=== PATIENT | female | born 1990 | race Caucasian/White ===

== ENCOUNTER 2021-01-28 10:49 | Inpatient (IN) | payer MEDICAID ==
[~2021-01-28] VITALS: Ht 162.6 cm; Wt 79.7 kg
[2021-01-28] MEDS ORDERED: MAGNESIUM SULF. PMX 20GM/500ML 500 ML IV SCH (11:00)
[2021-01-28] MEDS: LACTATED RINGERS 1,000 ML IV PRN (11:00)
[2021-01-28 11:08] VITALS: BP 119/64
[2021-01-28 11:41] LABS: BASOPHILS % (AUTO) 0 % (0-1); EOSINOPHILS % (AUTO) 0 % (1-7); LYMPHOCYTES % (AUTO) 7 % (22-44); MEAN CORPUSCULAR HEMOGLOBIN 30.7 pg (27.0-34.8); MEAN PLATELET VOLUME 9.6 fL (7.4-10.4); MONOCYTES % (AUTO) 2 % (2-9); NEUTROPHILS % (AUTO) 91 % (42-75); PLATELET COUNT 193 x10^3/uL (130-400); RED BLOOD COUNT 3.44 x10^6/uL (3.82-5.3); RED CELL DISTRIBUTION WIDTH 12.8 % (9.6-15.2)
[2021-01-28 11:56] LABS: ALBUMIN 2.1 g/dL (3.4-5.0); ANION GAP 7 mmol/L (5-15); CALCIUM 7.1 mg/dL (8.5-10.1); CHLORIDE 109 mmol/L (98-107)
[2021-01-28 12:07] LABS: ALANINE AMINOTRANSFERASE 11 U/L (12-78); ALKALINE PHOSPHATASE 86 U/L (45-117); BILIRUBIN,TOTAL 0.3 mg/dL (0.2-1.0); CREATININE 0.25 mg/dL (0.55-1.02); TOTAL PROTEIN 5.9 g/dL (6.4-8.2)
[2021-01-28 12:09] LABS: AMPHETAMINE SCREEN, URINE Negative (Negative); BARBITURATE SCREEN, URINE Negative (Negative); BENZODIAZEPINE SCREEN, URINE Negative (Negative); CANNABINOID SCREEN, URINE Positive (Negative); COCAINE SCREEN, URINE Negative (Negative); METHADONE SCREEN, URINE Negative (Negative); OPIATE SCREEN, URINE Negative (Negative)
[2021-01-28] MEDS ORDERED: MAGNESIUM SULF. PMX 20GM/500ML 500 ML IV ONE ×2 (16:27→22:25)
[2021-01-28] MEDS: MAGNESIUM SULF. PMX 20GM/500ML 500 ML IV SCH ×2 (17:04→22:29)
[2021-01-29] MEDS: ONDANSETRON 2MG/ML, 2ML IVPush PRN ×2 (02:35→12:23)
[2021-01-29] MEDS ORDERED: ONDANSETRON 2MG/ML, 2ML ONE (02:35)
[2021-01-29] MEDS: MAGNESIUM SULF. PMX 20GM/500ML 500 ML IV SCH ×3 (03:10→17:44)
[2021-01-29 07:30] VITALS: BP 122/58
[2021-01-29] MEDS ORDERED: OXYcodone 5 MG/5 ML ORAL.SOL UDC PO PRN (10:00)
[2021-01-29] MEDS ORDERED: EPHEDRINE 50 MG/ML, 1ML IVPush PRN (10:00)
[2021-01-29] MEDS ORDERED: ONDANSETRON 2MG/ML, 2ML IVPush PRN (10:00)
[2021-01-29] MEDS ORDERED: HYDROmorphone 2 MG/ML, 1ML IVPush PRN (10:00)
[2021-01-29] MEDS ORDERED: MEPERIDINE/PF 25MG/0.5ML IVPush PRN (10:00)
[2021-01-29] MEDS ORDERED: METOPROLOL 1 MG/ML, 5ML IV PRN (10:00)
[2021-01-29] MEDS ORDERED: LABETALOL 5MG/ML, 20ML IV PRN (10:00)
[2021-01-29] MEDS ORDERED: FENTANYL PF 100 MCG/2ML IV PRN (10:00)
[2021-01-29] MEDS ORDERED: hydrALAzine 20 MG/ML, 1ML IV PRN (10:00)
[2021-01-29] MEDS ORDERED: PROMETHAZINE 25 MG/ML, 1ML IV PRN (10:00)
[2021-01-29] MEDS ORDERED: BETAMETHASONE 6 MG/ML, 5ML IM SCH (10:00)
[2021-01-29] MEDS ORDERED: ALBUTEROL SULFATE 2.5 MG/3 ML NPPB PRN (10:00)
[2021-01-29] MEDS ORDERED: MIDAZOLAM 1 MG/ML, 2ML IV PRN (10:00)
[2021-01-29] MEDS ORDERED: HYDROcodone/APAP 7.5-325MG/15ML UDC PO PRN (10:00)
[2021-01-29] MEDS ORDERED: MAGNESIUM SULF. PMX 20GM/500ML 500 ML IV SCH (11:00)
[2021-01-29] MEDS ORDERED: PREN1TAB60 PO (16:10)
[2021-01-30] MEDS: MAGNESIUM SULF. PMX 20GM/500ML 500 ML IV SCH (01:43)
[2021-01-30] MEDS: LACTATED RINGERS 1,000 ML IV PRN (01:44)
[2021-01-30] MEDS ORDERED: MAGNESIUM SULF. PMX 20GM/500ML 500 ML IV SCH (09:30)
[2021-01-30] MEDS ORDERED: PRENATAL VIT/IRON/FA 1 EACH TABLET ONE (09:31)
[2021-01-30] MEDS: DOCUSATE 100 MG CAPSULE PO SCH (09:32)
[2021-01-30] MEDS: PRENATAL VIT/IRON/FA 1 EACH TABLET PO SCH (09:32)
[2021-01-31] MEDS: BISACODYL 5 MG EC TABLET PO SCH (09:11)
[2021-01-31] MEDS: PRENATAL VIT/IRON/FA 1 EACH TABLET PO SCH (09:12)
[2021-01-31] MEDS: FERROUS GLUCONATE 324 MG TABLET PO SCH (09:12)
[2021-01-31] MEDS: DOCUSATE 100 MG CAPSULE PO SCH ×2 (15:40→21:00)
[2021-02-01] MEDS: SODIUM CHLORIDE FLUSH 10ML SYR IVF SCH ×3 (04:00→14:00)
[2021-02-01] MEDS: FERROUS GLUCONATE 324 MG TABLET PO SCH (08:00)
[2021-02-01] MEDS: PRENATAL VIT/IRON/FA 1 EACH TABLET PO SCH (09:00)
[2021-02-01] MEDS: DOCUSATE 100 MG CAPSULE PO SCH (09:00)
[2021-02-02] MEDS: PRENATAL VIT/IRON/FA 1 EACH TABLET PO SCH (08:14)
[2021-02-02] MEDS: FERROUS GLUCONATE 324 MG TABLET PO SCH (08:15)
[2021-02-02] MEDS: SODIUM CHLORIDE FLUSH 10ML SYR IVF SCH ×3 (08:30→23:00)
[2021-02-03] MEDS: DOCUSATE 100 MG CAPSULE PO SCH (07:52)
[2021-02-03] MEDS: PRENATAL VIT/IRON/FA 1 EACH TABLET PO SCH (07:52)
[2021-02-03] MEDS: FERROUS GLUCONATE 324 MG TABLET PO SCH (07:52)
[2021-02-03] MEDS: SODIUM CHLORIDE FLUSH 10ML SYR IVF SCH ×3 (09:00→16:30)
[2021-02-03] MEDS: BISACODYL 5 MG EC TABLET PO SCH (09:00)
[2021-02-03] MEDS ORDERED: FAMOTIDINE 20 MG TABLET PO SCH (11:00)
[2021-02-03] MEDS: FAMOTIDINE 10 MG TAB PO SCH (11:03)
[2021-02-04] MEDS: FAMOTIDINE 10 MG TAB PO SCH ×4 (00:10→23:54)
[2021-02-04] MEDS: SODIUM CHLORIDE FLUSH 10ML SYR IVF SCH ×6 (07:45→23:55)
[2021-02-04] MEDS: BISACODYL 5 MG EC TABLET PO SCH (13:57)
[2021-02-04 20:07] VITALS: BP 123/71
[2021-02-05 10:00] VITALS: BP 105/56
[2021-02-05] MEDS: FERROUS GLUCONATE 324 MG TABLET PO SCH (10:52)
[2021-02-05] MEDS: DOCUSATE 100 MG CAPSULE PO SCH (10:53)
[2021-02-05] MEDS: PRENATAL VIT/IRON/FA 1 EACH TABLET PO SCH (10:53)
[2021-02-05] MEDS: FAMOTIDINE 10 MG TAB PO SCH (17:58)
[2021-02-05] MEDS: SODIUM CHLORIDE FLUSH 10ML SYR IVF SCH (21:00)
[2021-02-06] MEDS: FAMOTIDINE 10 MG TAB PO SCH ×3 (07:34→21:08)
[2021-02-06] MEDS: PRENATAL VIT/IRON/FA 1 EACH TABLET PO SCH (07:37)
[2021-02-06] MEDS: FERROUS GLUCONATE 324 MG TABLET PO SCH (07:37)
[2021-02-06] MEDS: DOCUSATE 100 MG CAPSULE PO SCH ×2 (07:37→21:07)
[2021-02-06] MEDS: SODIUM CHLORIDE FLUSH 10ML SYR IVF SCH ×3 (07:45→11:30)
[2021-02-06] MEDS: BISACODYL 5 MG EC TABLET PO SCH (22:23)
[2021-02-07] MEDS: SODIUM CHLORIDE FLUSH 10ML SYR IVF SCH ×3 (09:00→21:00)
[2021-02-08] MEDS: SODIUM CHLORIDE FLUSH 10ML SYR IVF SCH ×5 (08:15→23:30)
[2021-02-08] MEDS: PRENATAL VIT/IRON/FA 1 EACH TABLET PO SCH (08:27)
[2021-02-08] MEDS: FAMOTIDINE 10 MG TAB PO SCH ×3 (08:27→21:40)
[2021-02-08] MEDS: DOCUSATE 100 MG CAPSULE PO SCH ×2 (08:28→21:40)
[2021-02-08] MEDS: FERROUS GLUCONATE 324 MG TABLET PO SCH (08:28)
[2021-02-08] MEDS: BISACODYL 5 MG EC TABLET PO SCH (09:00)
[2021-02-08] MEDS ORDERED: ASPI-696 PO (11:21)
[2021-02-08 19:56] VITALS: BP 111/69
[2021-02-09] MEDS: DOCUSATE 100 MG CAPSULE PO SCH ×2 (08:00→20:54)
[2021-02-09] MEDS: FAMOTIDINE 10 MG TAB PO SCH ×3 (08:01→20:54)
[2021-02-09] MEDS: PRENATAL VIT/IRON/FA 1 EACH TABLET PO SCH (08:01)
[2021-02-09] MEDS: FERROUS GLUCONATE 324 MG TABLET PO SCH ×2 (08:01→10:00)
[2021-02-09] MEDS: SODIUM CHLORIDE FLUSH 10ML SYR IVF SCH ×3 (09:00→21:00)
[2021-02-09] MEDS: BISACODYL 5 MG EC TABLET PO SCH (09:52)
[2021-02-10] MEDS: FERROUS GLUCONATE 324 MG TABLET PO SCH ×2 (07:40→14:00)
[2021-02-10] MEDS: DOCUSATE 100 MG CAPSULE PO SCH ×2 (07:40→22:05)
[2021-02-10] MEDS: PRENATAL VIT/IRON/FA 1 EACH TABLET PO SCH (07:41)
[2021-02-10] MEDS: SODIUM CHLORIDE FLUSH 10ML SYR IVF SCH ×5 (07:45→22:15)
[2021-02-10] MEDS: FAMOTIDINE 10 MG TAB PO SCH ×3 (07:46→22:05)
[2021-02-10] MEDS: BISACODYL 5 MG EC TABLET PO SCH (08:45)
[2021-02-11] MEDS ORDERED: ONDANSETRON 2MG/ML, 2ML ONE (04:37)
[2021-02-11] MEDS ORDERED: FENTANYL PF 100 MCG/2ML ONE ×3 (04:37→05:54)
[2021-02-11] MEDS ORDERED: CEFAZOLIN 1,000 MG ONE (04:37)
[2021-02-11] MEDS ORDERED: SODIUM BICARBONATE 1 MEQ/ML, 50ML VIAL ONE (04:37)
[2021-02-11] MEDS ORDERED: KETOROLAC 30 MG/1 ML ONE ×2 (04:37→12:06)
[2021-02-11] MEDS ORDERED: PHENYLEPHRINE 10 MG/ML ONE (04:37)
[2021-02-11] MEDS ORDERED: OXYTOCIN 10 UNITS/ML, 1ML ONE (04:37)
[2021-02-11] MEDS ORDERED: EPHEDRINE 50 MG/ML, 1ML ONE (04:37)
[2021-02-11] MEDS ORDERED: DEXAMETHASONE 4 MG/ML, 1ML ONE (04:37)
[2021-02-11] MEDS ORDERED: TRANEXAMIC ACID 100 MG/ML, 10ML ONE (04:51)
[2021-02-11] MEDS ORDERED: METHYLERGONOVINE 0.2 MG/ML IM PRN (06:00)
[2021-02-11] MEDS ORDERED: MISOPROSTOL 200 MCG TABLET PO PRN (06:00)
[2021-02-11] MEDS ORDERED: ONDANSETRON 2MG/ML, 2ML IV PRN (06:00)
[2021-02-11] MEDS: OXYTOCIN 30U/ 0.9% NaCL 500ML 500 ML IV SCH ×2 (06:00→16:00)
[2021-02-11] MEDS ORDERED: ACETAMINOPHEN 325 MG TABLET PO PRN (06:00)
[2021-02-11] MEDS ORDERED: EPHEDRINE 50 MG/ML, 1ML IVPush PRN (06:30)
[2021-02-11] MEDS ORDERED: hydrALAzine 20 MG/ML, 1ML IV PRN (06:30)
[2021-02-11] MEDS ORDERED: HYDROcodone/APAP 7.5-325MG/15ML UDC PO PRN (06:30)
[2021-02-11] MEDS ORDERED: HYDROmorphone 2 MG/ML, 1ML IVPush PRN (06:30)
[2021-02-11] MEDS ORDERED: PROMETHAZINE 25 MG/ML, 1ML IV PRN (06:30)
[2021-02-11] MEDS ORDERED: MEPERIDINE/PF 25MG/0.5ML IVPush PRN (06:30)
[2021-02-11] MEDS ORDERED: METOPROLOL 1 MG/ML, 5ML IV PRN (06:30)
[2021-02-11] MEDS ORDERED: FENTANYL PF 100 MCG/2ML IV PRN (06:30)
[2021-02-11] MEDS ORDERED: LABETALOL 5MG/ML, 20ML IV PRN (06:30)
[2021-02-11] MEDS ORDERED: ALBUTEROL SULFATE 2.5 MG/3 ML NPPB PRN (06:30)
[2021-02-11] MEDS ORDERED: ONDANSETRON 2MG/ML, 2ML IVPush PRN (06:30)
[2021-02-11] MEDS ORDERED: OXYcodone 5 MG/5 ML ORAL.SOL UDC PO PRN (06:30)
[2021-02-11 06:36] LABS: MEAN CORPUSCULAR HEMOGLOBIN 30.6 pg (27.0-34.8); MEAN CORPUSCULAR HGB CONC 33.3 g/dL (32.4-35.8); MEAN PLATELET VOLUME 10.1 fL (7.4-10.4); PLATELET COUNT 172 x10^3/uL (130-400); RED CELL DISTRIBUTION WIDTH 13.8 % (9.6-15.2)
[2021-02-11] MEDS: DIPHENOXYLATE/ATROPINE ORAL SOL PO PRN ×2 (07:02→07:10)
[2021-02-11] MEDS ORDERED: CARBOPROST TROMETHAMINE 250 MCG/ML, 1ML IM ONE ×2 (07:30→10:34)
[2021-02-11] MEDS: SODIUM CHLORIDE FLUSH 10ML SYR IVF SCH ×4 (09:00→21:00)
[2021-02-11] MEDS: PRENATAL VIT/IRON/FA 1 EACH TABLET PO SCH (10:00)
[2021-02-11] MEDS: LACTATED RINGERS 1,000 ML IV SCH ×5 (10:00→22:04)
[2021-02-11] MEDS: OXYcodone IR 5MG TABLET PO PRN ×4 (10:05→22:45)
[2021-02-11] MEDS ORDERED: METHYLERGONOVINE 0.2 MG/ML IM ONE (10:34)
[2021-02-11 11:53] LABS: MEAN CORPUSCULAR HEMOGLOBIN 30.3 pg (27.0-34.8); MEAN CORPUSCULAR HGB CONC 33.5 g/dL (32.4-35.8); MEAN PLATELET VOLUME 10.1 fL (7.4-10.4); PLATELET COUNT 183 x10^3/uL (130-400); RED BLOOD COUNT 3.57 x10^6/uL (3.82-5.3); RED CELL DISTRIBUTION WIDTH 13.7 % (9.6-15.2)
[2021-02-11] MEDS: DOCUSATE 100 MG CAPSULE PO PRN ×2 (12:00→20:28)
[2021-02-11] MEDS: KETOROLAC 30 MG/1 ML IVPush SCH ×2 (12:05→17:55)
[2021-02-11 13:00] LABS: <PLATELET ESTIMATE> ADEQUATE; <PLT MORPHOLOGY> NORMAL PLT MORPH; <RBC MORPHOLOGY> NORMAL; BAND#(MANUAL) 0.83 x10^3/uL; BANDS%(MANUAL) 4 % (0-7); LYMPH#(MANUAL) 1.04 x10^3/uL (1-3.4); LYMPHS% (MANUAL) 5 % (22-44); MONOS#(MANUAL) 0.62 x10^3/uL (0.3-2.7); MONOS% (MANUAL) 3 % (2-9); SEG#(MANUAL) 18.22 x10^3/uL (1.8-6.8); SEGS% (MANUAL) 88 % (42-75)
[2021-02-11 15:30] VITALS: BP 123/83
[2021-02-11] MEDS ORDERED: DIPH,PERTUSS(ACELL),TET VAC/PF NC IM-VACC ONE ×2 (20:24→22:00)
[2021-02-11] MEDS: FERROUS GLUCONATE 324 MG TABLET PO SCH (20:29)
[2021-02-11 20:44] VITALS: BP 117/81
[2021-02-12] MEDS: KETOROLAC 30 MG/1 ML IVPush SCH ×4 (00:14→19:10)
[2021-02-12] MEDS: SIMETHICONE 80 MG CHEW TAB PO PRN (00:24)
[2021-02-12 00:27] VITALS: BP 114/75
[2021-02-12] MEDS: OXYTOCIN 30U/ 0.9% NaCL 500ML 500 ML IV SCH ×3 (01:57→22:00)
[2021-02-12] MEDS: LACTATED RINGERS 1,000 ML IV SCH ×6 (01:57→22:00)
[2021-02-12] MEDS: OXYcodone IR 5MG TABLET PO PRN ×5 (04:14→21:39)
[2021-02-12 04:17] VITALS: BP 118/77
[2021-02-12 08:00] VITALS: BP 119/74
[2021-02-12] MEDS: FERROUS GLUCONATE 324 MG TABLET PO SCH (08:00)
[2021-02-12] MEDS: DOCUSATE 100 MG CAPSULE PO PRN ×2 (08:52→19:10)
[2021-02-12] MEDS: PRENATAL VIT/IRON/FA 1 EACH TABLET PO SCH (08:52)
[2021-02-12] MEDS: SODIUM CHLORIDE FLUSH 10ML SYR IVF SCH ×3 (08:53→21:39)
[2021-02-12] MEDS: BISACODYL 5 MG EC TABLET PO PRN (10:24)
[2021-02-12 19:20] VITALS: BP 126/87
[2021-02-13] MEDS: KETOROLAC 30 MG/1 ML IVPush SCH ×2 (01:12→07:55)
[2021-02-13] MEDS: OXYcodone IR 5MG TABLET PO PRN ×3 (01:34→09:52)
[2021-02-13] MEDS: SIMETHICONE 80 MG CHEW TAB PO PRN (03:25)
[2021-02-13] MEDS: LACTATED RINGERS 1,000 ML IV SCH ×4 (06:00→18:00)
[2021-02-13] MEDS: OXYTOCIN 30U/ 0.9% NaCL 500ML 500 ML IV SCH ×2 (08:00→18:00)
[2021-02-13] MEDS: DOCUSATE 100 MG CAPSULE PO PRN ×2 (09:29→18:50)
[2021-02-13] MEDS: PRENATAL VIT/IRON/FA 1 EACH TABLET PO SCH (09:29)
[2021-02-13] MEDS: SODIUM CHLORIDE FLUSH 10ML SYR IVF SCH ×2 (09:29→13:50)
[2021-02-13] MEDS: FERROUS GLUCONATE 324 MG TABLET PO SCH (09:30)
[2021-02-13] MEDS: BISACODYL 5 MG EC TABLET PO PRN (10:58)
[2021-02-13] MEDS: OXYcodone/APAP 5/325MG TABLET PO PRN ×3 (14:20→22:54)
[2021-02-13] MEDS: ACETAMINOPHEN 500 MG TABLET PO PRN (14:59)
[2021-02-13] MEDS: IBUPROFEN 600 MG TABLET PO PRN (18:50)
[2021-02-13 20:00] VITALS: BP 145/90
[2021-02-13] MEDS ORDERED: MEASLES,MUMPS&RUBELLA VACC/PF 0.5 ML SQ-VACC ONE (23:30)
[2021-02-14 00:45] VITALS: BP 124/83
[2021-02-14] MEDS: IBUPROFEN 600 MG TABLET PO PRN ×2 (00:47→07:21)
[2021-02-14] MEDS: ACETAMINOPHEN 500 MG TABLET PO PRN (00:47)
[2021-02-14] MEDS: OXYcodone/APAP 5/325MG TABLET PO PRN ×2 (03:05→07:21)
[2021-02-14] MEDS: OXYTOCIN 30U/ 0.9% NaCL 500ML 500 ML IV SCH (04:00)
[2021-02-14] MEDS: DOCUSATE 100 MG CAPSULE PO PRN (07:21)
[2021-02-14] MEDS: PRENATAL VIT/IRON/FA 1 EACH TABLET PO SCH (07:21)
[2021-02-14] MEDS: FERROUS GLUCONATE 324 MG TABLET PO SCH (07:21)
[2021-02-14 08:04] VITALS: BP 120/75
[2021-02-14] MEDS ORDERED: OXYC1TAB12 PO ×2 (08:59→09:42)
[2021-02-14] MEDS ORDERED: FERR324T23 PO (09:42)
[2021-02-14] MEDS ORDERED: IBUP-1222 PO (09:42)
== END 2021-02-14 09:25 | disposition home or self-care (01) | DRG 540 ==
LOC: LDIP 10:49 → 2NW 02-11 14:57
PROVIDERS: ADMIT Obstetrics & Gynecology Maternal & Fetal Medicine; ATTEND Obstetrics & Gynecology Maternal & Fetal Medicine
PROC: 02HV33Z Insertion of Infusion Device into Superior Vena Cava, Percutaneous Approach (ICD-10-PCS; 2021-01-29)
PROC: B5181ZA Fluoroscopy of Superior Vena Cava using Low Osmolar Contrast, Guidance (ICD-10-PCS; 2021-01-29)
PROC: B548ZZA Ultrasonography of Superior Vena Cava, Guidance (ICD-10-PCS; 2021-01-29)
PROC: 02HV33Z Insertion of Infusion Device into Superior Vena Cava, Percutaneous Approach (ICD-10-PCS; 2021-02-03)
PROC: B5181ZA Fluoroscopy of Superior Vena Cava using Low Osmolar Contrast, Guidance (ICD-10-PCS; 2021-02-03)
PROC: B548ZZA Ultrasonography of Superior Vena Cava, Guidance (ICD-10-PCS; 2021-02-03)
PROC: 10D00Z1 Extraction of Products of Conception, Low, Open Approach (ICD-10-PCS; principal; 2021-02-11)
PROC: 30233N1 Transfusion of Nonautologous Red Blood Cells into Peripheral Vein, Percutaneous Approach (ICD-10-PCS; 2021-02-11)
DX: O60.14X0 Preterm labor third trimester with preterm delivery third trimester, not applicable or unspecified (principal); D62 Acute posthemorrhagic anemia; N13.6 Pyonephrosis; O44.03 Complete placenta previa NOS or without hemorrhage, third trimester; O26.833 Pregnancy related renal disease, third trimester; O98.82 Other maternal infectious and parasitic diseases complicating childbirth; O99.344 Other mental disorders complicating childbirth; F41.8 Other specified anxiety disorders; O99.02 Anemia complicating childbirth; O99.324 Drug use complicating childbirth; O43.213 Placenta accreta, third trimester; O35.8XX0 Maternal care for other (suspected) fetal abnormality and damage, not applicable or unspecified; J45.909 Unspecified asthma, uncomplicated; N28.89 Other specified disorders of kidney and ureter; O99.52 Diseases of the respiratory system complicating childbirth; F43.10 Post-traumatic stress disorder, unspecified; F12.90 Cannabis use, unspecified, uncomplicated; Z3A.33 33 weeks gestation of pregnancy; Z37.0 Single live birth; Z86.16 Personal history of COVID-19; Z20.822 Contact with and (suspected) exposure to COVID-19
CPT/HCPCS: 36415; 36573; 80053; 80307; 82962; 83735; 85025; 85027; 86592; 86850; 86900; 86923; 87635; 87806; 88305; 90707; 90715; G0378; J0690; J0702; J1100; J1170; J1885; J2405; J3010; C1751; G0475; J2210; J2370; J2590; J3475; J7120; P9016